=== PATIENT | female | born 1980 | race Caucasian/White ===

== ENCOUNTER 2021-09-09 12:50 | Inpatient (IN) | payer OTHER, SELFPAY ==
[~2021-09-09] VITALS: Ht 167.6 cm; Wt 61.7 kg
[2021-09-09 12:55] VITALS: BP 130/92
--- NOTE | 2021-09-09 12:55 | NUR ---
BIBA to bed 03.
--- NOTE | 2021-09-09 13:00 | NUR ---
Pt with 88% on room air c/o SOB; pt sat upright and placed on 4L by NC SpO2 99%.
--- NOTE | 2021-09-09 13:00 | NUR ---
41 y/o female BIBA c/o general body fatigue/weakness, upper abd pain x 3 days. Patient A&Ox4, ambulatory, states 8/10, sharp/constant, non-radiating pain. Pt presents with skin and eyes yellow, possible jaundice. Pt was picked up form grocery store after feeling like she was about to pass out. Pt also reports chills, nausea, vomiting, SOB, leg swelling. Denies dysuria, chest pain, headache, diarrhea. public works inspector in place. SpO2 92% on room air. Lung sounds diminished L lower lobes. Bed locked in lowest position, side rails x 1, call light in reach. pmh: gallstones, liver disease, hemophilia, cholelithiasis nka
--- NOTE | 2021-09-09 13:10 | NUR ---
Dr. Gutierrez is evaluating pt at bedside
--- NOTE | 2021-09-09 13:12 | NUR ---
RAD at bedside
[2021-09-09] MEDS ORDERED: ONDANSETRON 4 MG/2 ML VIAL IVP ONE (13:15)
[2021-09-09] MEDS ORDERED: MORPHINE SULFATE 4 MG/ML SYR IVP ONE (13:15)
--- NOTE | 2021-09-09 13:35 | NUR ---
labs collected from iv site 22g on right ac at this time, handed to hari elise
--- NOTE | 2021-09-09 13:40 | NUR ---
Ultrasound at bedside.
[2021-09-09 13:58] LABS: HEMATOCRIT 31.2 % (36-48); HEMOGLOBIN 11.2 g/dL (12.0-16.0); MEAN CORPUSCULAR HEMOGLOBIN 41 pg (27-31); MEAN CORPUSCULAR HGB CONC 36 g/dL (33-37); MEAN CORPUSCULAR VOLUME 115.8 fL (80-94); PLATELET COUNT (AUTO) 67 K/uL (140-450); RED CELL DISTRIBUTION WIDTH 18.3 % (11.6-13.7); WHITE BLOOD COUNT (AUTO) 3.9 K/uL (4.8-10.8)
--- NOTE | 2021-09-09 14:17 | NUR ---
ANDRES walked to lab and handed to CPT
[2021-09-09 14:20] LABS: PROTHROMBIN TIME 17.9 secs (10.8-13.4)
[2021-09-09] MEDS ORDERED: PRO5 PO (14:36)
[2021-09-09] MEDS ORDERED: PANT40EC PO (14:36)
[2021-09-09] MEDS ORDERED: LACT10SO86 PO (14:36)
[2021-09-09] MEDS ORDERED: RIFA550T PO (14:36)
[2021-09-09] MEDS ORDERED: FURO-570 PO (14:36)
[2021-09-09] MEDS ORDERED: SPIR50TA PO (14:36)
[2021-09-09 14:39] LABS: ALBUMIN 2.8 g/dL (3.4-5.0); ANION GAP 18.5 (8-16); CARBON DIOXIDE 24.7 mmol/L (21-32); CREATININE 0.6 mg/dL (0.6-1.3); POTASSIUM 3.2 mmol/L (3.5-5.1); TOTAL BILIRUBIN 20.2 mg/dL (0.0-1.0)
--- NOTE | 2021-09-09 14:49 | NUR ---
Pt reports pain 4/10 + relief. Denies nausea. All pt needs met.
--- NOTE | 2021-09-09 15:01 | NUR ---
Ice chips provided per pt request.
[2021-09-09 15:08] LABS: LYMPHOCYTES % (MANUAL) 7 % (20-46); MONOCYTES % (MANUAL) 9 % (5-12)
--- NOTE | 2021-09-09 15:12 | NUR ---
Pt states pain remains controlled; 0/10 at this time. Denies nausea. Call light in reach.
[2021-09-09] MEDS ORDERED: ALBUMIN HUMAN 25% 50 ML IV ONE (15:15)
--- NOTE | 2021-09-09 16:37 | NUR ---
Patient resting in semi-fowlers with personnel monitor in place. 4L by NC remains in place SpO2 98%. Bed locked in lowest position, side rails x 1.
[2021-09-09] MEDS ORDERED: NACL 0.9% 2,000 ML IV ONE (17:10)
[2021-09-09] MEDS ORDERED: PHYTONADIONE 10 MG in NACL 0.9% 50 ML IV ONE (17:10)
[2021-09-09] MEDS ORDERED: POTASSIUM CHLORIDE 10 MEQ TABER PO ONE ×3 (17:10→20:04)
--- NOTE | 2021-09-09 17:47 | NUR ---
Report given to TORIBIO Boogie.
--- NOTE | 2021-09-09 17:50 | NUR ---
Patient will be admitted to care of Dr. Palmer. Admited to Telemetry. Will go to room 110B. Belongings list completed. Report to TORIBIO Boogie.
--- NOTE | 2021-09-09 18:10 | NUR ---
RECEIVED PT FROM ER. PT A/O X4. RAC #20. O2 SATURATION @ 86-89% ON RA. 2L NC GIVEN TO PT. O2 SATURATION @ 98-100%. DINNER AT BEDSIDE. MRSA NASAL COMPLETED. WILL ENDORSE CONTINUITY OF CARE TO NIGHTSHIFT.
[2021-09-09 19:45] VITALS: BP 120/81
[2021-09-09] MEDS ORDERED: PHYTONADIONE 10 MG/ML AMP ONE (19:57)
[2021-09-09 20:00] VITALS: BP 121/69
[2021-09-09] MEDS: MORPHINE SULFATE 2 MG/ML SYR IVP PRN (20:30)
[2021-09-09] MEDS ORDERED: FUROSEMIDE 40 MG TAB PO ONE (21:35)
[2021-09-09 22:15] LABS: AMYLASE 51 U/L (25-115); LACTATE DEHYDROGENASE 357 U/L (81-234)
[2021-09-09] MEDS: LEVOFLOXACIN 500 MG/D5W PREMIX 100 ML IV SCH (22:30)
[2021-09-09] MEDS: LACTULOSE 20 GM/30 ML UDC PO SCH (22:31)
[2021-09-09] MEDS: RIFAXIMIN 550 MG TAB PO SCH (22:31)
[2021-09-09] MEDS: FUROSEMIDE 40 MG/4 ML VIAL IVP SCH (22:31)
[2021-09-09 22:44] LABS: BILIRUBIN,URINE 3+ (NEGATIVE); BLOOD, URINE 2+ (NEGATIVE); LEUKOCYTE ESTERASE ,URINE TRACE (NEGATIVE); NITRITE, URINE POSITIVE (NEGATIVE); UGLUCOSE TRACE (NEGATIVE)
[2021-09-09 23:14] LABS: APPEARANCE,URINE CLOUDY (CLEAR); COLOR,URINE AMBER (YELLOW)
[2021-09-09 23:19] LABS: RBC,URINE 0-5 /HPF (0-5)
[2021-09-10] VITALS: BP 118/58
--- NOTE | 2021-09-10 01:00 | NUR ---
BP RE CHECK 118/62 , C/O PAIN WILL MEDICATE - O2 SAT 98 %
[2021-09-10] MEDS: MORPHINE SULFATE 2 MG/ML SYR IVP PRN ×4 (01:09→16:51)
[2021-09-10] MEDS: ONDANSETRON 4 MG/2 ML VIAL IVP PRN ×3 (01:10→09:52)
[2021-09-10] MEDS: MIDODRINE 5 MG TAB PO SCH ×2 (01:10→13:57)
--- NOTE | 2021-09-10 02:00 | NUR ---
ROUNDS , SLEEPING . AROUSABLE EASILY BY NOISE , ON TELE MONITOR - SR .
[2021-09-10 04:00] VITALS: BP 117/62
--- NOTE | 2021-09-10 04:30 | NUR ---
BP RE CHECK , 121/82
--- NOTE | 2021-09-10 06:00 | NUR ---
ROUNDS , NO COMPLAIN MADE AT THIS TIME , CALL LIGHT WITHIN REACH .
[2021-09-10 06:47] LABS: BASOPHILS % (AUTO) 0.3 % (0.0-2.0); EOSINOPHILS % (AUTO) 0.1 % (0.0-4.0); HEMATOCRIT 22.7 % (36-48); HEMOGLOBIN 8.2 g/dL (12.0-16.0); LYMPHOCYTES # (AUTO) 0.3 K/uL (2.5-16.5); LYMPHOCYTES % (AUTO) 14.6 % (20.5-51.1); MEAN CORPUSCULAR HEMOGLOBIN 41 pg (27-31); MEAN CORPUSCULAR HGB CONC 36 g/dL (33-37); MEAN CORPUSCULAR VOLUME 114.1 fL (80-94); MONOCYTES # (AUTO) 0.3 K/uL (0.8-1.0); MONOCYTES % (AUTO) 13.9 % (1.7-9.3); NEUTROPHILS # (AUTO) 1.7 K/uL (1.8-7.7); NEUTROPHILS % (AUTO) 71.1 % (42.2-75.2); RED BLOOD CELL COUNT(AUTO) 1.99 MIL/uL (4.20-5.40); RED CELL DISTRIBUTION WIDTH 18.2 % (11.6-13.7); WHITE BLOOD COUNT (AUTO) 2.4 K/uL (4.8-10.8)
--- NOTE | 2021-09-10 07:00 | NUR ---
I INFORMED DR. TOTH THE PT HAS EPISODE OF DESAT - DR. TOTH MADE NEW ORDERS AND CARRIED OUT . I ENDORSED NURSE PHILILP TO FF UP ANY FURTHER ORDERS FROM DR. TOTH - NURSE PHILLIP VERBALIZES UNDERSTANDING .
[2021-09-10 07:03] LABS: ALBUMIN 2.2 g/dL (3.4-5.0); ANION GAP 12.1 (8-16); CARBON DIOXIDE 28.7 mmol/L (21-32); CREATININE 0.5 mg/dL (0.6-1.3); MAGNESIUM 1.2 mg/dL (1.8-2.4); PHOSPHORUS 3.7 mg/dL (2.5-4.9); TOTAL BILIRUBIN 15.7 mg/dL (0.0-1.0)
--- NOTE | 2021-09-10 07:23 | NUR ---
PATIENT HAS BEEN SCREENED AND CATEGORIZED HIGH NUTRITION RISK. PATIENT WILL BE SEEN WITHIN 1-2 DAYS OF ADMISSION. 09/10/21-09/11/[address]
[2021-09-10 07:33] LABS: PLATELET COUNT (AUTO) 31 K/uL (140-450)
--- NOTE | 2021-09-10 07:40 | NUR ---
RECEIVED REPORT FROM BOARD MIXER TENDER NURSE FOR CONTINUITY OF CARE. PT ASLEEP IN BED. ON O2 NC AT 4L, BREATHING SYMMETRICAL. FLACC O. ALL SAFETY MEASURES IN PLACE.
[2021-09-10 08:00] VITALS: BP 111/52
[2021-09-10 08:03] LABS: POTASSIUM 2.8 mmol/L (3.5-5.1)
--- NOTE | 2021-09-10 08:07 | NUR ---
REPORTED K LEVEL 2.[address] TOTH AND ALSO MAGNESIUM 1.2 WITH ORDER MADE, PT AWARE.
[2021-09-10] MEDS ORDERED: KCL 20 MEQ/WATER INJ PREMIX 200 ML IV ONE (08:10)
[2021-09-10] MEDS ORDERED: MAGNESIUM OXIDE 400 MG TAB PO SCH (08:16)
[2021-09-10] MEDS: FUROSEMIDE 40 MG/4 ML VIAL IVP SCH (09:00)
[2021-09-10] MEDS ORDERED: FUROSEMIDE 40 MG TAB PO SCH (09:00)
[2021-09-10] MEDS: SPIRONOLACTONE 50 MG TAB PO SCH (09:00)
[2021-09-10] MEDS: LACTULOSE 20 GM/30 ML UDC PO SCH ×3 (10:46→16:48)
[2021-09-10] MEDS: PANTOPRAZOLE 40 MG TABEC PO SCH (10:46)
[2021-09-10] MEDS: RIFAXIMIN 550 MG TAB PO SCH ×2 (10:47→20:46)
[2021-09-10] MEDS ORDERED: POTASSIUM CHLORIDE 20 MEQ, LIDOCAINE MPF 1% 25 MG in NACL 0.9% 250 ML IV ONE (10:50)
[2021-09-10] MEDS ORDERED: MAG SULF 2000 MG/WATER PREMIX 50 ML IV SCH (10:51)
[2021-09-10 12:00] VITALS: BP 116/62
--- NOTE | 2021-09-10 14:23 | NUR ---
PRN ZOFRAN GIVEN FOR NAUSEA/VOMITING.
--- NOTE | 2021-09-10 14:36 | NUR ---
PT REFUSES TO PUT LEFT UPPER SIDERAIL UP DESPITE EXPLAINING IMPORTANCE OF SIDERAIL FOR SAFETY. ONLY RIGHT UPPER SIDERAIL IS UP. Addendum: 09/10/21 at 1638 by Mari Kelly RN PT BEEN REFUSING LACTULOSE, OFFERED MULTIPLE TIMES.
--- NOTE | 2021-09-10 15:02 | NUR ---
PT STILL WITH EPISODES OF NAUSEA/VOMITING DESPITE PHARMACOLOGIC INTERVENTIONS ALSO DIDN'T EAT BREAKFAST AND LUNCH DUE TO VOMITING, DR TOTH MADE AWARE.
[2021-09-10 16:00] VITALS: BP 107/51
[2021-09-10] MEDS: METOCLOPRAMIDE 10 MG/2 ML INJ VIAL IVP PRN (16:42)
[2021-09-10 16:51] LABS: ANION GAP 11.6 (8-16); CARBON DIOXIDE 31.6 mmol/L (21-32); CREATININE 0.5 mg/dL (0.6-1.3); POTASSIUM 3.2 mmol/L (3.5-5.1)
--- NOTE | 2021-09-10 18:50 | NUR ---
CALLED BY PT DUE TO IV SITE LEAKING, NOTED IV SITE INFILTRATED. TRIED TO RE-INSERT NEW LINE TWICE BUT UNSUCCESSFUL, FLORAL ASSOCIATE NURSE MADE AWARE.
--- NOTE | 2021-09-10 19:25 | NUR ---
ENDORSED PT TO PROCESSING ANALYST NURSE. PT IN STABLE CONDITION
--- NOTE | 2021-09-10 19:30 | NUR ---
RECEIVED BEDSIDE REPORT FROM DAY SHIFT RN FOR CONTINUITY OF CARE. PT IS AWAKE ON NC 4L. PT IS NOT IN ANY DISTRESS. BREATHING RHYTHMIC AND UNLABORED. PT HAS NO IV. CALL LIGHT WITHIN REACH. ALL SAFETY MEASURES TAKEN. WILL CONTINUE TO MONITOR THE PT.
[2021-09-10 20:00] VITALS: BP 137/53
[2021-09-10] MEDS: LEVOFLOXACIN 500 MG/D5W PREMIX 100 ML IV SCH (20:48)
--- NOTE | 2021-09-10 20:55 | NUR ---
ALL DUE MEDS GIVEN. NO ADVERSE REACTION. WILL CONTINUE TO OBSERVE THE PT.
[2021-09-11] VITALS: BP 112/53
--- NOTE | 2021-09-11 00:30 | NUR ---
PT IS SLEEPING IN BED COMFORTABLY. PT IS NOT IN ANY DISTRESS. BREATHING RHYTHMIC AND UNLABORED. PT HAS NC 4L SATING 96%. IVF RUNNING PER MD ORDER. CALL LIGHT WITHIN REACH. ALL SAFETY MEASURES TAKEN. WILL CONTINUE TO MONITOR THE PT.
[2021-09-11] MEDS: MIDODRINE 5 MG TAB PO SCH ×2 (00:33→12:00)
--- NOTE | 2021-09-11 02:20 | NUR ---
PT IS SLEEPING IN BED COMFORTABLY. PT IS ON NC 4L SATING 96%. IVF RUNNING PER MD ORDER. NOT IN ANY DISTRESS. BREATHING RHYTHMIC AND UNLABORED. CALL LIGHT WITHIN REACH. ALL SAFETY MEASURES TAKEN. WILL CONTINUE TO MONITOR THE PT.
--- NOTE | 2021-09-11 03:48 | NUR ---
PT IS COMPLAINING OF RIGHT UPPER ABD PAIN 7/10. PT IS REQUESTING PAIN MEDICATION. WILL MEDICATE PER MD ORDER. COMFORT MEASURES PROVIDED. ALL SAFETY MEASURES TAKEN. WILL CONTINUE TO MONITOR THE PT.
[2021-09-11] MEDS: MORPHINE SULFATE 2 MG/ML SYR IVP PRN ×4 (03:51→21:08)
[2021-09-11 04:00] VITALS: BP 122/45
[2021-09-11 07:12] LABS: ANION GAP 9.7 (8-16); CARBON DIOXIDE 29.1 mmol/L (21-32); CREATININE 0.6 mg/dL (0.6-1.3)
--- NOTE | 2021-09-11 07:20 | NUR ---
ENDORSED PT TO DAY SHIFT RN FOR CONTINUITY OF CARE. PT IS STABLE.
[2021-09-11 07:23] LABS: POTASSIUM 2.8 mmol/L (3.5-5.1)
[2021-09-11 07:26] LABS: BASOPHILS % (AUTO) 0.1 % (0.0-2.0); HEMATOCRIT 20.9 % (36-48); HEMOGLOBIN 7.7 g/dL (12.0-16.0); LYMPHOCYTES # (AUTO) 0.4 K/uL (2.5-16.5); LYMPHOCYTES % (AUTO) 11.2 % (20.5-51.1); MEAN CORPUSCULAR HEMOGLOBIN 43 pg (27-31); MEAN CORPUSCULAR HGB CONC 37 g/dL (33-37); MEAN CORPUSCULAR VOLUME 115.2 fL (80-94); MONOCYTES # (AUTO) 0.4 K/uL (0.8-1.0); MONOCYTES % (AUTO) 13.8 % (1.7-9.3); NEUTROPHILS # (AUTO) 2.4 K/uL (1.8-7.7); NEUTROPHILS % (AUTO) 74.9 % (42.2-75.2); PLATELET COUNT (AUTO) 32 K/uL (140-450); RED BLOOD CELL COUNT(AUTO) 1.82 MIL/uL (4.20-5.40); RED CELL DISTRIBUTION WIDTH 17.2 % (11.6-13.7); WHITE BLOOD COUNT (AUTO) 3.2 K/uL (4.8-10.8)
[2021-09-11 07:27] LABS: MAGNESIUM 1.4 mg/dL (1.8-2.4); PHOSPHORUS 3.2 mg/dL (2.5-4.9)
--- NOTE | 2021-09-11 07:32 | NUR ---
RECEIVED REPORT FROM PM SHIFT FOR CONTINUITY OF CARE, PT APPEARS ASLEEP IN BED, NO ACUTE DISTRESS, SAFETY MEASRUES MAINTAINED, CALL LIGHT WITHIN REACH, WILL CONTINUE TO MONITOR
--- NOTE | 2021-09-11 07:33 | NUR ---
CRITICAL LAB - POTASSIUM 2.8, DR TOTH NOTIFIED
[2021-09-11 08:00] VITALS: BP 113/49
[2021-09-11] MEDS ORDERED: KCL 20 MEQ/WATER INJ PREMIX 200 ML IV SCH (08:15)
[2021-09-11] MEDS: FUROSEMIDE 40 MG/4 ML VIAL IVP SCH (08:49)
[2021-09-11] MEDS ORDERED: POTASSIUM CHLORIDE 10 MEQ TABER PO SCH (09:00)
[2021-09-11] MEDS: LACTULOSE 20 GM/30 ML UDC PO SCH ×3 (09:02→17:05)
[2021-09-11] MEDS: SPIRONOLACTONE 50 MG TAB PO SCH (09:03)
[2021-09-11] MEDS: MAGNESIUM OXIDE 400 MG TAB PO SCH (09:03)
[2021-09-11] MEDS: METOCLOPRAMIDE 10 MG/2 ML INJ VIAL IVP PRN ×2 (09:04→17:05)
[2021-09-11] MEDS: RIFAXIMIN 550 MG TAB PO SCH ×2 (09:04→20:13)
[2021-09-11] MEDS: PANTOPRAZOLE 40 MG TABEC PO SCH (09:04)
--- NOTE | 2021-09-11 10:54 | NUR ---
NELSON BENAVIDEZ: PATIENT HAS AN ORDER TO TRANSFER HER TO THE HIGHER LEVEL OF CARE. SPOKE WITH PATIENT STATED SHE IS ALREADY ON TRANSPLANT LIST WITH [facility] UNDER THE CARE OF DR SILAS WELSH LIVER SPECIALIST. PER PATIENT SINCE SHE HAS THE RECORD WITH [facility] IN [place] PREFERRED TO GO TO [facility] NOT OTHER HOSPITAL. FAXED TO [facility]. CM TO FOLLOW Addendum: 09/11/21 at 1433 by Sarah Ch RN DC PLANNING: CALLED [facility] SPOKE WITH BRANDEE Rodriguez HE PROVIDED THE AUTH # FOR [facility] [id number] REF # [id number] CALLED [facility] SPOKE WITH VALE STATED THE NURSE WILL REVIEW AND AWAITING FOR ACCEPTING DOCTOR. CM TO FOLLOW Addendum: 09/11/21 at 1634 by Sarah Ch RN DC PLANNING: RECEIVED A CALL FROM [facility] SPOKE WITH HERNANDO HARDIN AWAITING FOR OPERATIONS LEAD. PROVIDE THE UNIT NUMBER. ARRANGED TRANSPORT WITH BAUDILIO BARBOSA IT WILL CALL. CM TO FOLLOW Addendum: 09/18/21 at 1403 by Sarah Ch RN DC PLANNING Addendum: 09/19/21 at 1153 by Sarah Ch RN LATE ENTRY 09/18/21 1400 CM SPOKE WITH GAYE AT [facility], STATED SINCE PATIENT HAS PRIMARY INSURANCE WITH [facility] PPO AND SECONDARY MEDICARE A&B THROUGH HER EX AND HAS TO PAY THE DEDUCTIBLE $6000. IN ORDER TO USE THE MEDICARE A&B SHE HAS TO DIS ENROLL FROM [employer] . PATIENT VERBALIZED UNDERSTANDING AND CONFIRMED HAS THE PHONE NUMBER AND WILL CALL [facility]. DC PLAN TO TRANSFER TO SNF WITH HOSPICE. CM TO FOLLOW Addendum: 09/19/21 at 1203 by Sarah Ch RN DC PLANNING: SW AND BRANDEE SPOKE WITH PATIENT ALERT AND ORIENTED X 4 ABLE TO MAKE NEEDS KNOWN SITTING UP AT THE EDGE OF THE BED. DISCUSSED THE DC PLAN PER PATIENT [facility] REQUESTED A LEGAL PAPER FROM THE EX TO DIS ENROLL HER AND THE PROCESS WILL TAKE TIME . GAYE FROM HOSPICE SPOKE WITH PATIENT AND EXPLAIN THAT THE PROCESS WILL TAKE TIME, AT THE SAME TIME IF SHE IS ABLE TO STAY WITH FAMILY WILL FOLLOW UP WITH HER. PATIENT CALLED HER SISTER AND HER SISTER STATED WILLING TO PAY FOR THE HOTEL WILL ARRANGE UBER FOR TRANSPORT. PER PATIENT THE HOTEL CHECK-IN IS AT 3 PM AND WILL ARRANGE KNITTED GARMENT FINISHER TIME 2 PM . PER TORIBIO HEREDIA DC PAPER WORK IS READY TO BE SIGNED. CM TO FOLLOW
[2021-09-11 12:00] VITALS: BP 155/68
--- NOTE | 2021-09-11 13:42 | NUR ---
09/11/21 RD INITIAL ASSESSMENT COMPLETED PLEASE REFER TO NUTRITION ASSESSMENT UNDER CARE ACTIVITY FOR ESTIMATED NUTRITIONAL NEEDS. 1. CONTINUE REGULAR DIET TOLERATED 2. RECOMMEND ENSURE CLEAR TID PER PROTOCOL 3. RD TO FOLLOW-UP 2-3 DAYS, HIGH RISK DULCE GRANGER RD
[2021-09-11 16:00] VITALS: BP 119/42
--- NOTE | 2021-09-11 19:25 | NUR ---
RECEIVED BEDSIDE REPORT FROM DAY SHIFT RN FOR CONTINUITY OF CARE. PT IS ASLEE,ON NC 4L. PT IS NOT IN ANY DISTRESS. BREATHING EQUAL AND UNLABORED. PT IV ON L HAND G22, SL. CALL LIGHT WITHIN REACH. ALL SAFETY MEASURES IN PLACE. WILL CONTINUE TO MONITOR.
[2021-09-11] MEDS: LEVOFLOXACIN 500 MG/D5W PREMIX 100 ML IV SCH (19:54)
[2021-09-11 20:00] VITALS: BP 115/63
--- NOTE | 2021-09-11 20:30 | NUR ---
SCHEDULED MEDICATIONS GIVEN.PT TOLERATED WELL.CALL LIGHT WITHIN REACH. WILL CONTINUE TO MONITOR.
[2021-09-12] VITALS: BP 109/63
--- NOTE | 2021-09-12 00:40 | NUR ---
PT ASLEEP. VISIBLE CHEST RISE AND FALL NOTED.NO S/SX OF DISTRESS NOTED. ALL PRECAUTIONS IN PLACE. WILL CONTINUE TO MONITOR.
[2021-09-12] MEDS: MIDODRINE 5 MG TAB PO SCH ×2 (00:51→12:48)
[2021-09-12 04:00] VITALS: BP 117/52
[2021-09-12] MEDS: ONDANSETRON 4 MG/2 ML VIAL IVP PRN (05:12)
[2021-09-12] MEDS: MORPHINE SULFATE 2 MG/ML SYR IVP PRN (05:45)
--- NOTE | 2021-09-12 05:50 | NUR ---
PT COMPLAINED OF ABDOMINAL PAIN. PRN PAIN MEDICATION GIVEN. PT TOLERATED WELL. WILL CONTINUE TO MONITOR.
--- NOTE | 2021-09-12 06:25 | NUR ---
PT IS STABLE. NO ACUTE EVENTS THROUGHOUT THE NIGHT. NO S/SX OF DISTRESS NOTED. NO COMPLAINS AT THIS MOMENT. ALL NEEDS ATTENDED. ALL SAFETY PRECAUTIONS IN PLACE. WILL ENDORSE TO AM SHIFT NURSE.
--- NOTE | 2021-09-12 07:23 | NUR ---
PT IS STABLE. ENDORSED TO AM SHIFT NURSE FOR CONTINUITY OF CARE.
--- NOTE | 2021-09-12 07:44 | NUR ---
OFF SUPPLEMENTAL OXYGEN AT THIS TIME ROOM AIR SATURATION 85% PLACED PATIENT BACK ON SUPPLEMENTAL OXYGEN AT 3 LPM VIA NC
[2021-09-12 08:00] VITALS: BP 106/48
[2021-09-12] MEDS ORDERED: POTASSIUM CHLORIDE 10 MEQ TABER PO SCH (09:00)
[2021-09-12] MEDS ORDERED: MAGNESIUM OXIDE 400 MG TAB PO SCH (09:00)
[2021-09-12] MEDS: RIFAXIMIN 550 MG TAB PO SCH ×2 (09:47→20:42)
[2021-09-12] MEDS: LACTULOSE 20 GM/30 ML UDC PO SCH ×3 (09:47→17:00)
[2021-09-12] MEDS: FUROSEMIDE 40 MG/4 ML VIAL IVP SCH (09:47)
[2021-09-12] MEDS: MAGNESIUM OXIDE 400 MG TAB PO SCH (09:48)
[2021-09-12] MEDS: PANTOPRAZOLE 40 MG TABEC PO SCH (09:48)
[2021-09-12] MEDS: POTASSIUM CHLORIDE 10 MEQ TABER PO SCH (09:48)
[2021-09-12] MEDS: SPIRONOLACTONE 50 MG TAB PO SCH (09:48)
[2021-09-12] MEDS: METOCLOPRAMIDE 10 MG/2 ML INJ VIAL IVP PRN (09:49)
--- NOTE | 2021-09-12 10:49 | NUR ---
DC PLANNING: BRANDEE SPOKE WITH JOSELYN AT THE [facility] WHO STATES THAT THE METAL FITTERS AND MACHINISTS WHO REVIEWED THE CASE HAS DECLINED THE TRANSFER. HE STATES THAT THE PATIENT DOES NOT NEED A CHOLECYSTECTOMY BUT RECOMMENDS AN ERCP. BRANDEE SPOKE WITH THE ATTENDING MD WHO ASKS THAT BRANDEE CONTINUES TO LOOK FOR A FACILITY TO TRANSFER THE PATIENT TO, CM WILL SPEAK WITH [facility] TO GET AUTH FOR ANOTHER HOSPITAL. BRANDEE WILL FOLLOW. Addendum: 09/12/21 at 1159 by Christine Means CM DC PLANNING: BRANDEE SPOKE WITH LEEROY, COORDINATOR AT [facility] ([phone]) ENDORSED THAT [facility] DECLINED THE PATIENT ASKED FOR OTHER HLOC OPTIONS. GIVEN [facility], AUTH TO BE GENERATED ONCE THERE IS AN ACCEPTING HOSPITAL. BRANDEE SPOKE WITH DEMETRIO IN BED CONTROL AT [facility], NO BEDS. BRANDEE SPOKE WITH NAIMA AT [facility], CLINICAL PACKET FAXED FOR REVIEW BY THEIR METAL FITTERS AND MACHINISTS. BRANDEE WILL FOLLOW. Addendum: 09/12/21 at 1554 by Christine Means CM DC PLANNING: CM SPOKE WITH NAIMA AT [facility], PATIENT DECLINED BY THEIR METAL FITTERS AND MACHINISTS, FEELS SHE NEEDS A TERTIARY CENTER BECAUSE OF HER LOW PLATELET COUNT. CM WILL FOLLOW. Addendum: 09/13/21 at 1400 by aSrah Ch RN DC PLANNING: PATIENT HAS A DC ORDER TO GO HOME AND FOLLOW UP WITH LIVER SPECIALIST OUT PATIENT. RECEIVED A CALL FROM PT'S INSURANCE [facility] SPOKE WITH JACKIE IRVIN AT [phone], UPDATED PT CLINICAL AND FAXED MEDICATION LIST TO [phone] PER JACKIE APPROVED ALL DAYS REF # [id number] . CM TO FOLLOW Addendum: 09/14/21 at 1604 by Sarah Ch RN DC PLANNING: PATIENT REFUSED TO TAKE LACTULOSE AMMONIA LEVEL 137, CONDITION CHANGED CONFUSED AT TIMES. CALLED [facility] CM SPOKE WITH JACKIE NOTIFIED PT'S DISCHARGE CANCELLED PER JACKIE WILL OPEN THE CASE AND REVIEW THE CLINICALS FAXED ALL CLINICALS TO [phone]. CM TO FOLLOW Addendum: 09/15/21 at 0834 by Christine Means CM DC PLANNING: ORDER RECEIVED FOR DISCHARGE, BRANDEE SPOKE WITH SARAH CHARGE NURSE, PATIENTS MOTHER ANDREA WILL BE CALLED TO ASK TO PICK THE PATIENT UP. CM WILL FOLLOW. Addendum: 09/15/21 at 1125 by Christine Means CM DC PLANNING: PER NURSING, PATIENT IS ASKING TO BE TRANSFERRED TO [facility] ([facility] BRANDEE SPOKE WITH SERINA, COORDINATOR AT [facility] ([phone]), FACILITY IS CONTRACTED. BRANDEE SPOKE WITH ADMISSIONS AT SNF ([phone]), CLINICAL PACKET FAXED TO THEM. BRANDEE ALSO SPOKE WITH THE PATIENTS MOTHER IN LAW ANDREA BARNHART ([phone]), SHE STATES THAT THE PATIENT HAS BEEN LIVING IN [place] BUT CAME OUT ON BUSINESS WITH HER BOSS, UNCLEAR WHERE THE PATIENT WAS STAYING PRIOR TO HOSPITALIZATION. THE PATIENT'S ESTRANGED AND 19 YEAR OLD SON NU LIVE TOGETHER IN [place] AND THE PATIENT HAS BEEN SPEAKING WITH HER SON AT LEAST WEEKLY. THE PATIENT ALSO HAS A TWIN SISTER, JAYESH, LIVING IN [place] AND OTHER SISTERS LIVING IN [facility]. ANDREA WAS NOT ABLE TO GIVE MORE INFORMATION ABOUT THE PATIENT, BRANDEE WILL FOLLOW UP WITH FACILITY FOR PLACEMENT AND FOLLOW FOR NEEDS. Addendum: 09/15/21 at 1403 by Christine Means CM DC PLANNING: PATIENT DECLINED BY [facility] BECAUSE OF HER AGE (TOO YOUNG). CM LET THE PATIENTS MOTHER IN LAW ANDREA BARNHART KNOW. BRANDEE THEN SPOKE WITH THE PATIENT AT BEDSIDE TO LET HER KNOW THAT SHE WAS DECLINED AND THAT SNF PLACEMENT IS NOT PROBABLE BECAUSE OF HER AGE. THE PATIENT STATES THAT HER BOYFRIEND DELROY WILL PICK HER UP BUT HE'S WORKING AND CAN'T PICK HER UP UNTIL HE HAS A CHANCE. BRANDEE CONFIRMED HIS NUMBER IN THE PATIENTS PHONE WITH HER PERMISSION, PHONE NUMBER IS [phone]. BRANDEE ALSO OBTAINED HER SISTER JAYESH WONG PHONE NUMBER ([phone]) AND ASKED IF BRANDEE COULD CALL HER, PATIENT DOES NOT WANT HER SISTER CALLED. THE PATIENT STATES THAT DELROY IS ABLE TO TAKE CARE OF HER AND THAT THEY HAVE BEEN TOGETHER FOR 8 YEARS AND THAT HE HAS TAKEN CARE OF HER BEFORE. BRANDEE WILL FOLLOW. Addendum: 09/15/21 at 1643 by Christine Means CM DC PLANNING: BRANDEE ,MARIA R AND CHARGE NURSE MET WITH THE PATIENT AND CALLED HER FRIEND DELROY WITH CONVERSATION ON SPEAKER. DELROY STATES THAT HE IS NOT THE PATIENTS BOYFRIEND BUT IS A WORK FRIEND AND THAT HE'S KNOWN HER FOR A MONTH. STATES THAT THE PLAN WAS FOR HIM TO DRIVE HER TO [place] WHEN SHE DC'D FROM THE HOSPITAL AND THAT HE LIVES LOCALLY BUT WAS WILLING TO HELP. ADMITS THAT HE DOES NOT KNOW HOW TO HELP IF SHE IS CONFUSED AND UNABLE TO WALK. PATIENT UNABLE TO HOLD PHONE OR DRINK BY HERSELF, AND IS NOT EATING BY HERSELF. PERMISSION GIVEN BY THE PATIENT TO CALL HER SISTER JAYESH WONG ([phone]), BRANDEE UPDATED THE ATTENDING MD DR VITAL REGARDING LACK OF PLACEMENT AND SAFE ENVIRONMENT TO DC THE PATIENT TO. BRANDEE WILL FOLLOW.
[2021-09-12 12:00] VITALS: BP 111/59
[2021-09-12 12:10] LABS: BASOPHILS % (AUTO) 0.2 % (0.0-2.0); HEMATOCRIT 25.7 % (36-48); HEMOGLOBIN 9.3 g/dL (12.0-16.0); LYMPHOCYTES # (AUTO) 0.3 K/uL (2.5-16.5); LYMPHOCYTES % (AUTO) 7.5 % (20.5-51.1); MEAN CORPUSCULAR HEMOGLOBIN 42 pg (27-31); MEAN CORPUSCULAR HGB CONC 36 g/dL (33-37); MEAN CORPUSCULAR VOLUME 116.8 fL (80-94); MONOCYTES # (AUTO) 0.5 K/uL (0.8-1.0); MONOCYTES % (AUTO) 10.5 % (1.7-9.3); NEUTROPHILS # (AUTO) 3.5 K/uL (1.8-7.7); NEUTROPHILS % (AUTO) 81.8 % (42.2-75.2); PLATELET COUNT (AUTO) 41 K/uL (140-450); RED CELL DISTRIBUTION WIDTH 17.6 % (11.6-13.7); WHITE BLOOD COUNT (AUTO) 4.3 K/uL (4.8-10.8)
[2021-09-12 12:33] LABS: CARBON DIOXIDE 28.1 mmol/L (21-32); CREATININE 0.7 mg/dL (0.6-1.3); POTASSIUM 3.1 mmol/L (3.5-5.1)
[2021-09-12 12:37] LABS: MAGNESIUM 1.3 mg/dL (1.8-2.4); PHOSPHORUS 2.9 mg/dL (2.5-4.9)
[2021-09-12 16:00] VITALS: BP 106/41
--- NOTE | 2021-09-12 19:30 | NUR ---
RECEIVED BEDSIDE REPORT FROM DAY SHIFT RN FOR CONTINUITY OF CARE. PT IS AWAKE,ALERT AND ORIENTED. ON NC 4L. PT IS NOT IN ANY DISTRESS. BREATHING EQUAL AND UNLABORED. PT IV ON L HAND G22, SL. CALL LIGHT WITHIN REACH. ALL SAFETY MEASURES IN PLACE. WILL CONTINUE TO MONITOR.
--- NOTE | 2021-09-12 19:43 | NUR ---
PT PRESENTS AWAKE AND ALERT LAYING IN BED WITH NO SIGNS OF RESPIRATORY DISTRESS SATING 92% ON RA. AUSCULTATION REVEALED VESICULAR BS. WILL CONTINUE TO MONITOR.
[2021-09-12] MEDS: LEVOFLOXACIN 500 MG/D5W PREMIX 100 ML IV SCH (19:56)
[2021-09-12 20:00] VITALS: BP 100/49
--- NOTE | 2021-09-12 20:30 | NUR ---
SCHEDULED MEDICATIONS GIVEN. PT TOLERATED WELL. NO DISTRESS NOTED. WILL CONTINUE TO MONITOR.
--- NOTE | 2021-09-12 22:30 | NUR ---
PT ASLEEP. VISIBLE CHEST RISE AND FALL NOTED.NO S/SX OF DISTRESS NOTED. ALL PRECAUTIONS IN PLACE. WILL CONTINUE TO MONITOR.
--- NOTE | 2021-09-12 22:30 | NUR ---
PT PRESENTS LAYING IN BED NO SIGNS OF RESPIRATORY DISTRESS SEEN AT THIS TIME, EQUAL CHEST RISE, AUSCULTATIONS REVEALED VESICULAR BS, SATING 96% ON RA. WILL CONTINUE TO MONITOR.
[2021-09-13] VITALS (7 sets, daily range): BP systolic 95–118; BP diastolic 45–63
[2021-09-13] MEDS: MIDODRINE 5 MG TAB PO SCH ×2 (00:28→12:55)
--- NOTE | 2021-09-13 00:30 | NUR ---
SCHEDULED MEDICATION GIVEN. PT TOLERATED WELL. NO DISTRESS NOTED.
--- NOTE | 2021-09-13 02:46 | NUR ---
PT ASLEEP. VISIBLE CHEST RISE AND FALL NOTED.NO S/SX OF DISTRESS NOTED. ALL PRECAUTIONS IN PLACE. WILL CONTINUE TO MONITOR.
[2021-09-13] MEDS: ONDANSETRON 4 MG/2 ML VIAL IVP PRN (04:51)
--- NOTE | 2021-09-13 06:40 | NUR ---
PT IS STABLE. NO ACUTE EVENTS THROUGHOUT THE NIGHT. NO S/SX OF DISTRESS OF THE MOMENT. ALL NEEDS ATTENDED. ALL PRECAUTIONS IN PLACE. WILL ENDORSE TO AM SHIFT NURSE.
[2021-09-13 06:44] LABS: HEMATOCRIT 24.8 % (36-48); HEMOGLOBIN 9.1 g/dL (12.0-16.0); MEAN CORPUSCULAR HEMOGLOBIN 43 pg (27-31); MEAN CORPUSCULAR HGB CONC 37 g/dL (33-37); MEAN CORPUSCULAR VOLUME 116.7 fL (80-94); PLATELET COUNT (AUTO) 42 K/uL (140-450); RED BLOOD CELL COUNT(AUTO) 2.12 MIL/uL (4.20-5.40); WHITE BLOOD COUNT (AUTO) 3.9 K/uL (4.8-10.8)
[2021-09-13 07:00] LABS: ANION GAP 12.3 (8-16); CARBON DIOXIDE 26.7 mmol/L (21-32); CREATININE 0.8 mg/dL (0.6-1.3)
--- NOTE | 2021-09-13 07:25 | NUR ---
RECEIVED PATIENT FROM AUTOMATIC LINE SET UP MECHANIC NURSE FOR CONTINUITY OF CARE. PATIENT IS A/O X4. RESTING IN BED, AROUSABLE TO VOICE. RESPIRATORY EVEN AND UNLABORED, ON ROOM AIR. NO SIGN OF DISTRESS NOTED. SKIN WARM, DRY, NON DIAPHORETIC, JAUNDICE NOTED GENERALIZE. IV ON LEFT HAND 22G, INTACT AND PATENT, SALINE LOCK. PATIENT DENIES ANY PAIN OR DISCOMFORT. ABLE TO MAKE NEED KNOWN. PLAN OF CARE DISCUSSED, PATIENT VERBALIZED UNDERSTANDING. PRECAUTION IN PLACE. CALL LIGHT WITHIN REACH. WILL CONTINUE TO MONITOR.
[2021-09-13 08:20] LABS: LYMPHOCYTES % (MANUAL) 10 % (20-46); MONOCYTES % (MANUAL) 13 % (5-12)
[2021-09-13 08:21] LABS: BASOPHILS % (MANUAL) 0 % (0-2); EOSINOPHILS % (MANUAL) 0 % (0-4)
[2021-09-13 08:22] LABS: BLASTS, MANUAL % 0 % (0-0); METAMYELOCYTES % 0 % (0-0); MYELOCYTES % 0 % (0-0); OTHER CELLS,MANUAL % 0 (0-0); PROMYELOCYTES % 0 % (0-0)
[2021-09-13 08:23] LABS: BUFFY COAT SMEAR PREP 0
[2021-09-13] MEDS: LACTULOSE 20 GM/30 ML UDC PO SCH ×3 (09:00→17:00)
[2021-09-13] MEDS: FUROSEMIDE 40 MG/4 ML VIAL IVP SCH (09:04)
[2021-09-13] MEDS: SPIRONOLACTONE 50 MG TAB PO SCH (09:04)
[2021-09-13] MEDS: PANTOPRAZOLE 40 MG TABEC PO SCH (09:05)
[2021-09-13] MEDS: MAGNESIUM OXIDE 400 MG TAB PO SCH (09:05)
[2021-09-13] MEDS: RIFAXIMIN 550 MG TAB PO SCH ×2 (09:05→20:54)
[2021-09-13] MEDS: POTASSIUM CHLORIDE 10 MEQ TABER PO SCH (09:05)
--- NOTE | 2021-09-13 09:06 | NUR ---
SCHEDULE MEDICATIONS GIVEN WITH EDUCATION. PATIENT VERBALIZED UNDERSTANDING. PATIENT TOLERATED WELL. NO SIGN OF DISTRESS NOTED. PATIENT REFUSED LACTULOSE 20G PO. EDUCATION GIVEN, PATIENT STILL REFUSED.
[2021-09-13] MEDS ORDERED: LEVO750T51 PO (09:11)
[2021-09-13] MEDS ORDERED: POTA10TA70 PO (09:11)
[2021-09-13] MEDS ORDERED: FURO-570 PO (09:11)
[2021-09-13] MEDS ORDERED: LACT10SO86 PO (09:11)
--- NOTE | 2021-09-13 11:25 | NUR ---
PATIENT IS RESTING IN BED, NO SIGN OF DISTRESS NOTED. CALL LIGHT WITHIN REACH. WILL CONTINUE TO MONITOR.
--- NOTE | 2021-09-13 13:20 | NUR ---
PATIENT IS AWAKE, RESTING IN BED, NO SIGN OF DISTRESS NOTED. PRECAUTION IN PLACE. CALL LIGHT WITHIN REACH. WILL CONTINUE TO MONITOR.
--- NOTE | 2021-09-13 15:22 | NUR ---
CONFIRM WITH PATIENT THE MACHINE SCALLOP CUTTER TIME BY HER BOYFRIEND, IT WILL BE AROUND 6PM.
--- NOTE | 2021-09-13 16:30 | NUR ---
DISCHARGE EDUCATION GIVEN WITH HANDOUT. PATIENT VERBALIZED UNDERSTANDING. SW AND CM AT BEDSIDE TO EXPLAIN THE DISCHARGE THAT WAS PLACED, SO PATIENT WILL TAKE RESPONSIBILITY TO PAY FOR HOSPITAL COST. PATIENT VERBALIZED UNDERSTANDING AND STATES THAT HER BOYFRIEND WILL PICK HER UP AT 6PM.
--- NOTE | 2021-09-13 19:11 | NUR ---
ENDORSED PATIENT TO INSTRUCTOR KINDERGARTEN FOR CONTINUITY OF CARE. PATIENT IS STABLE.
--- NOTE | 2021-09-13 19:30 | NUR ---
RECEIVED BEDSIDE REPORT FROM DAY SHIFT RN FOR CONTINUITY OF CARE. PT IS AWAKE IN BED. NOT IN ANY DISTRESS. ON RA. 22 GAUGE LEFT HAND IV SALINE LOCK. TALKED TO PT ABOUT WHAT HER PLAN IS FOR BEING DISCHARGE. PT STATED HER MOM IS GOING TO PICK HER UP WITHIN AN HOUR. WILL FOLLOW UP. ALL SAFETY MEASURES TAKEN. WILL CONTINUE TO MONITOR THE PT.
[2021-09-13] MEDS: LEVOFLOXACIN 500 MG/D5W PREMIX 100 ML IV SCH (19:50)
--- NOTE | 2021-09-13 21:00 | NUR ---
ALL DUE MEDS GIVEN. NO ADVERSE REACTION NOTED. WILL CONTINUE TO MONITOR THE PT.
--- NOTE | 2021-09-13 21:30 | NUR ---
ENDORSED PT TO TORIBIO KINNEY FOR CONTINUITY OF CARE. PT IS STABLE.
--- NOTE | 2021-09-13 22:00 | NUR ---
RECEIVED REPORT FROM TORIBIO NEAL FOR CONTINUITY OF CARE. PT IS AWAKE,ALERT AND ORIENTED.ON ROOM AIR. BREATHING EQUAL AND UNLABORED. PT IV ON L HAND G22, SL. CALL LIGHT WITHIN REACH. ALL SAFETY MEASURES IN PLACE. WILL CONTINUE TO MONITOR.
[2021-09-14] VITALS: BP 127/68
[2021-09-14] MEDS: MIDODRINE 5 MG TAB PO SCH ×2 (00:38→13:00)
--- NOTE | 2021-09-14 00:45 | NUR ---
SCHEDULED MEDICATION GIVEN. PT TOLERATED WELL. NO DISTRESS NOTED.
[2021-09-14 04:00] VITALS: BP 117/65
[2021-09-14 06:07] LABS: FOLIC ACID 12.2 ng/mL (>3.0)
[2021-09-14 07:17] LABS: BASOPHILS % (AUTO) 0.1 % (0.0-2.0); HEMATOCRIT 28.7 % (36-48); HEMOGLOBIN 10.5 g/dL (12.0-16.0); LYMPHOCYTES # (AUTO) 0.2 K/uL (2.5-16.5); LYMPHOCYTES % (AUTO) 4.1 % (20.5-51.1); MEAN CORPUSCULAR HEMOGLOBIN 42 pg (27-31); MEAN CORPUSCULAR HGB CONC 36 g/dL (33-37); MEAN CORPUSCULAR VOLUME 116.3 fL (80-94); MONOCYTES # (AUTO) 0.6 K/uL (0.8-1.0); MONOCYTES % (AUTO) 10.7 % (1.7-9.3); NEUTROPHILS % (AUTO) 85.1 % (42.2-75.2); PLATELET COUNT (AUTO) 43 K/uL (140-450); RED BLOOD CELL COUNT(AUTO) 2.47 MIL/uL (4.20-5.40); RED CELL DISTRIBUTION WIDTH 18.4 % (11.6-13.7); WHITE BLOOD COUNT (AUTO) 5.8 K/uL (4.8-10.8)
--- NOTE | 2021-09-14 07:36 | NUR ---
ENDORSED TO AM SHIFT NURSE FOR CONTINUITY OF CARE. PT IS STABLE.
[2021-09-14 07:38] LABS: ANION GAP 15.8 (8-16); CARBON DIOXIDE 26.2 mmol/L (21-32); CREATININE 0.7 mg/dL (0.6-1.3)
[2021-09-14 08:00] VITALS: BP 112/44
--- NOTE | 2021-09-14 08:30 | NUR ---
PATIENT IS AOX1, CONFUSED, DIFFICULT TO ORIENT, UNABLE TO FOLLOW COMMANDS. SHE DOES NOT TRACK MOVEMENTS, RESPIRATIONS EVEN AND UNLABORED ON ROOM AIR. DENIES PAIN AT THIS TIME. SKIN IS JAUNDICED/ EYES ICTERIC. NO SWELLING. PATIENT IS REFUSING MEDICATIONS, UNABLE TO ORIENT AND HAVE PATIENT COMPLY. NOTIFIED DR STEWART THAT PATIENT IS NOT STABLE TO GO HOME. AMMONIA LEVEL ORDERED. WILL CONTINUE TO MONITOR.
[2021-09-14] MEDS: KCL 20 MEQ/WATER INJ PREMIX 200 ML IV PRN ×2 (08:39→16:27)
[2021-09-14] MEDS: FUROSEMIDE 40 MG/4 ML VIAL IVP SCH (09:00)
[2021-09-14] MEDS: SPIRONOLACTONE 50 MG TAB PO SCH (09:00)
[2021-09-14] MEDS: POTASSIUM CHLORIDE 10 MEQ TABER PO SCH (09:00)
[2021-09-14] MEDS: LACTULOSE 20 GM/30 ML UDC PO SCH ×3 (09:00→17:08)
[2021-09-14] MEDS: PANTOPRAZOLE 40 MG TABEC PO SCH (09:00)
[2021-09-14] MEDS: MAGNESIUM OXIDE 400 MG TAB PO SCH (09:00)
--- NOTE | 2021-09-14 10:00 | NUR ---
UPDATED MOTHER, ANDREA, ON PLAN OF CARE. SHE IS AWARE THAT PATIENT WILL STAY ANOTHER DAY.
[2021-09-14 12:00] VITALS: BP 105/41
[2021-09-14 16:00] VITALS: BP 111/49
[2021-09-14] MEDS: DEXT 5% /NACL 0.9% 1,000 ML IV SCH (16:04)
--- NOTE | 2021-09-14 16:22 | NUR ---
09/14/21 RD FOLLOW UP COMPLETED PLEASE REFER TO NUTRITION ASSESSMENT UNDER CARE ACTIVITY FOR ESTIMATED NUTRITIONAL NEEDS. 1. CONTINUE REGULAR DIET TOLERATED 2. DISCONTINUE ORAL SUPPLEMENTS D/T PT REFUSING 3. RD TO FOLLOW-UP 2-3 DAYS, HIGH RISK DULCE GRANGER RD
--- NOTE | 2021-09-14 17:00 | NUR ---
PATIENT STILL REFUSING PO MEDICATIONS. NOT ABLE TO REORIENT. NOT FOLLOWING COMMANDS, STILL ANXIOUS AND TRYING TO GET OUT OF BED. GAVE LACTULOSE VIA ENEMA, PATIENT TOLERATED WELL.
--- NOTE | 2021-09-14 19:14 | NUR ---
RECEIVED REPORT FROM MORNING NURSE. PATIENT RESTING AT BEDSIDE, SEEMS RESTLESS, TRYING TO GET OUT OF BED. ALERT AND ORIENTED TO SELF AND , CONFUSED. SAFETY MEASURES DONE, SIDE ARAILS UP X2 WITH BED ALARM ON. IVF ONGOING AT DESIRED RATE. WILL CONTINUE TO MONITOR PATIENT.
[2021-09-14 20:00] VITALS: BP 126/54
[2021-09-14] MEDS: RIFAXIMIN 550 MG TAB PO SCH (20:29)
--- NOTE | 2021-09-14 21:17 | NUR ---
PATIENT GIVEN DUE MED. PATIENT TOOK MED BUT SPIT IT OUT AFTER NOT ABLE TO SWALLOW. WILL CONTINUE TO MONITOR PATIENT.
[2021-09-15] MEDS: MIDODRINE 5 MG TAB PO SCH ×2 (01:15→13:00)
[2021-09-15] MEDS: DEXT 5% /NACL 0.9% 1,000 ML IV SCH ×2 (01:35→15:29)
[2021-09-15 04:00] VITALS: BP 111/44
[2021-09-15 07:00] LABS: EOSINOPHILS % (AUTO) 0.1 % (0.0-4.0); HEMATOCRIT 26.1 % (36-48); HEMOGLOBIN 9.4 g/dL (12.0-16.0); LYMPHOCYTES # (AUTO) 0.4 K/uL (2.5-16.5); LYMPHOCYTES % (AUTO) 8.2 % (20.5-51.1); MEAN CORPUSCULAR HEMOGLOBIN 42 pg (27-31); MEAN CORPUSCULAR HGB CONC 36 g/dL (33-37); MEAN CORPUSCULAR VOLUME 117.9 fL (80-94); MONOCYTES # (AUTO) 0.7 K/uL (0.8-1.0); MONOCYTES % (AUTO) 13.5 % (1.7-9.3); NEUTROPHILS # (AUTO) 4.1 K/uL (1.8-7.7); NEUTROPHILS % (AUTO) 78.2 % (42.2-75.2); PLATELET COUNT (AUTO) 41 K/uL (140-450); RED BLOOD CELL COUNT(AUTO) 2.21 MIL/uL (4.20-5.40); RED CELL DISTRIBUTION WIDTH 18.9 % (11.6-13.7); WHITE BLOOD COUNT (AUTO) 5.2 K/uL (4.8-10.8)
[2021-09-15 07:25] LABS: ANION GAP 13.9 (8-16); CARBON DIOXIDE 22.3 mmol/L (21-32); CREATININE 0.7 mg/dL (0.6-1.3); POTASSIUM 3.2 mmol/L (3.5-5.1)
--- NOTE | 2021-09-15 07:35 | NUR ---
PT IS AWAKEAOX2 AND CONFUSED.ON ROOM AIR. BREATHING IS EQUAL AND UNLABORED. NO SIGNS OF DISTRESS. PT IV ON L HAND G22. CALL LIGHT WITHIN REACH. ALL SAFETY MEASURES IN PLACE. PT IS STABLE.
[2021-09-15 08:00] VITALS: BP 106/59
[2021-09-15] MEDS: SPIRONOLACTONE 50 MG TAB PO SCH (09:00)
[2021-09-15] MEDS: POTASSIUM CHLORIDE 10 MEQ TABER PO SCH (10:34)
[2021-09-15] MEDS: RIFAXIMIN 550 MG TAB PO SCH ×2 (10:34→20:35)
[2021-09-15] MEDS: PANTOPRAZOLE 40 MG TABEC PO SCH (10:35)
[2021-09-15] MEDS: MAGNESIUM OXIDE 400 MG TAB PO SCH (10:35)
[2021-09-15] MEDS: FUROSEMIDE 40 MG/4 ML VIAL IVP SCH (10:35)
[2021-09-15] MEDS: LACTULOSE 20 GM/30 ML UDC PO SCH ×3 (10:36→16:41)
[2021-09-15 16:00] VITALS: BP 113/66
--- NOTE | 2021-09-15 16:00 | NUR ---
PT SISTER WAS TALKING TO PT AND PT TLD HER WHERE SHE WAS AND WHY SHE WAS HERE. SISTER JAYESH WILL FOLLOW UP TOMORROW FOR POSSIBLE DISCHARGE AND AFTER INPATIENT PLANS.
--- NOTE | 2021-09-15 19:26 | NUR ---
ENDORSED TO DECORATING MACHINE OPERATOR NURSE FOR CONTINUITY OF CARE. POC DISCUSSED.
--- NOTE | 2021-09-15 19:27 | NUR ---
RECEIVED PATIENT WAKE ON BED, HAVING DINNER. BREATHING EVEN AND UNLABORED. IV FLUIDS ONGOING AT DESIRED RATE. NO PAIN COMPLAINTS. WILL CONTINUE TO MONITOR PATIENT.
[2021-09-15 20:00] VITALS: BP 115/49
[2021-09-15] MEDS: KCL 20 MEQ/WATER INJ PREMIX 200 ML IV PRN (22:32)
[2021-09-16] MEDS: MIDODRINE 5 MG TAB PO SCH ×2 (00:41→13:22)
[2021-09-16] MEDS: MORPHINE SULFATE 2 MG/ML SYR IVP PRN (00:45)
[2021-09-16 04:00] VITALS: BP 90/51
[2021-09-16] MEDS: DEXT 5% /NACL 0.9% 1,000 ML IV SCH ×2 (05:50→16:25)
[2021-09-16 07:09] LABS: BASOPHILS % (AUTO) 0.2 % (0.0-2.0); HEMATOCRIT 27.4 % (36-48); HEMOGLOBIN 9.9 g/dL (12.0-16.0); LYMPHOCYTES # (AUTO) 0.6 K/uL (2.5-16.5); LYMPHOCYTES % (AUTO) 13.8 % (20.5-51.1); MEAN CORPUSCULAR HEMOGLOBIN 43 pg (27-31); MEAN CORPUSCULAR HGB CONC 36 g/dL (33-37); MEAN CORPUSCULAR VOLUME 119.8 fL (80-94); MONOCYTES # (AUTO) 0.6 K/uL (0.8-1.0); MONOCYTES % (AUTO) 14.7 % (1.7-9.3); NEUTROPHILS # (AUTO) 2.9 K/uL (1.8-7.7); NEUTROPHILS % (AUTO) 71.3 % (42.2-75.2); PLATELET COUNT (AUTO) 44 K/uL (140-450); RED BLOOD CELL COUNT(AUTO) 2.29 MIL/uL (4.20-5.40); RED CELL DISTRIBUTION WIDTH 17.7 % (11.6-13.7); WHITE BLOOD COUNT (AUTO) 4.1 K/uL (4.8-10.8)
[2021-09-16 08:00] VITALS: BP 106/56
--- NOTE | 2021-09-16 08:02 | NUR ---
RECEIVED PATIENT, AOX2-3, LETHARGIC, REORIENTABLE. RESPIRATIONS EVEN AND UNLABORED ON ROOM AIR, VITAL SIGNS STABLE. JAUNDICED/ICTERIC, OTHERWISE SKIN INTACT. POOR PO INTAKE, ENCOURAGED ORAL SUPPLEMENT. IV TO LEFT FOREARM INFILTRATED.
[2021-09-16 08:20] LABS: ANION GAP 13.6 (8-16); CARBON DIOXIDE 23.5 mmol/L (21-32); CREATININE 0.7 mg/dL (0.6-1.3); POTASSIUM 3.1 mmol/L (3.5-5.1)
[2021-09-16] MEDS: FUROSEMIDE 40 MG/4 ML VIAL IVP SCH ×2 (09:00→09:09)
[2021-09-16] MEDS: SPIRONOLACTONE 50 MG TAB PO SCH (09:00)
--- NOTE | 2021-09-16 09:00 | NUR ---
SPOKE TO MOTHER, ANDREA, AND PROVIDED HER WITH AN UPDATE. BIOLOGY INTERN CALLED, UPDATE GIVEN.
[2021-09-16] MEDS: guaiFENesin 20 MG/ML UDC PO PRN ×3 (09:04→22:27)
[2021-09-16] MEDS: LACTULOSE 20 GM/30 ML UDC PO SCH ×3 (09:04→16:24)
[2021-09-16] MEDS: MAGNESIUM OXIDE 400 MG TAB PO SCH (09:04)
[2021-09-16] MEDS: RIFAXIMIN 550 MG TAB PO SCH ×2 (09:04→20:28)
[2021-09-16] MEDS: PANTOPRAZOLE 40 MG TABEC PO SCH (09:05)
[2021-09-16] MEDS: POTASSIUM CHLORIDE 10 MEQ TABER PO SCH (09:05)
[2021-09-16] MEDS: KCL 20 MEQ/WATER INJ PREMIX 200 ML IV PRN (09:14)
--- NOTE | 2021-09-16 09:19 | NUR ---
(09/16/21) RD FOLLOW UP COMPLETED PLEASE REFER TO NUTRITION PROGRESS NOTE UNDER CARE ACTIVITY FOR ESTIMATED NUTRITION NEEDS. RD RECOMMENDATIONS: 1. CONTINUE REGULAR DIET TOLERATED 2. ORAL SUPPLEMENTS PREVIOUSLY D/CD D/T PT REFUSING 3. RD TO FOLLOW-UP 2-3 DAYS, HIGH RISK NANCY [place] MS, RDN
--- NOTE | 2021-09-16 10:00 | NUR ---
UNABLE TO OBTAIN IV ACCESS, DR VITAL MADE AWARE.
--- NOTE | 2021-09-16 13:44 | NUR ---
PATIENT SITTING IN BED HAVING DINNER, HAD LARGE BM.
[2021-09-16 16:00] VITALS: BP 103/51
--- NOTE | 2021-09-16 18:45 | NUR ---
PATIENT WITH POOR APPETITE BUT TAKING ENSURE. RESTING IN BED. NO COMPLAINTS AT THIS TIME. WILL ENDORSE TO NIGHT RN.
--- NOTE | 2021-09-16 19:10 | NUR ---
RECEIVED REPORT FROM MORNING SHIFT RN. PATIENT ASLEEP ON BED, RESPIRATION EVEN AND UNLABORED. NO IV ACCESS, MD AWARE. AWAITING HOSPICE EVALUATION. WILL CONTINUE TO MONITOR PATIENT.
[2021-09-16 20:00] VITALS: BP 122/59
[2021-09-17] MEDS: MIDODRINE 5 MG TAB PO SCH ×2 (01:30→12:26)
[2021-09-17 04:00] VITALS: BP 108/46
[2021-09-17] MEDS: DEXT 5% /NACL 0.9% 1,000 ML IV SCH ×2 (06:45→20:05)
--- NOTE | 2021-09-17 06:59 | NUR ---
UNSUCCESSFUL 1 TIME ATTEMPT TO INSERT IV. PATIENT WANTED US GUIDED IV INSERTION INSTEAD. WILL ENDORSE TO MORNING NURSE.
[2021-09-17 07:12] LABS: HEMATOCRIT 23.6 % (36-48); HEMOGLOBIN 8.6 g/dL (12.0-16.0); MEAN CORPUSCULAR HEMOGLOBIN 43 pg (27-31); MEAN CORPUSCULAR HGB CONC 36 g/dL (33-37); MEAN CORPUSCULAR VOLUME 118.8 fL (80-94); PLATELET COUNT (AUTO) 37 K/uL (140-450); RED BLOOD CELL COUNT(AUTO) 1.99 MIL/uL (4.20-5.40); RED CELL DISTRIBUTION WIDTH 17.2 % (11.6-13.7); WHITE BLOOD COUNT (AUTO) 3.5 K/uL (4.8-10.8)
[2021-09-17 07:22] LABS: CARBON DIOXIDE 21.3 mmol/L (21-32); CREATININE 0.5 mg/dL (0.6-1.3); POTASSIUM 3.3 mmol/L (3.5-5.1)
[2021-09-17 07:33] LABS: LYMPHOCYTES % (MANUAL) 10 % (20-46); MONOCYTES % (MANUAL) 8 % (5-12)
[2021-09-17] MEDS ORDERED: POTASSIUM CHLORIDE 10 MEQ TABER PO PRN (08:15)
[2021-09-17] MEDS ORDERED: MAG SULF 2000 MG/WATER PREMIX 50 ML IV PRN (08:15)
[2021-09-17] MEDS: FUROSEMIDE 40 MG/4 ML VIAL IVP SCH (08:40)
[2021-09-17] MEDS: MAGNESIUM OXIDE 400 MG TAB PO SCH (08:41)
[2021-09-17] MEDS: RIFAXIMIN 550 MG TAB PO SCH ×2 (08:41→20:34)
[2021-09-17] MEDS: LACTULOSE 20 GM/30 ML UDC PO SCH ×3 (08:41→16:46)
[2021-09-17] MEDS: POTASSIUM CHLORIDE 10 MEQ TABER PO SCH (08:41)
[2021-09-17] MEDS: SPIRONOLACTONE 50 MG TAB PO SCH (08:41)
[2021-09-17] MEDS: PANTOPRAZOLE 40 MG TABEC PO SCH (08:47)
--- NOTE | 2021-09-17 10:03 | NUR ---
PT IS AOX4, VSS, NAD NOTED. PT SEEN BY THIS AM. PLAN FOR HOME WITH HOSPICE WHEN PT KNOWS WHERE SHE CAN GO. PT INFORMED MD SHE WANTS TO REMAIN FULL CODE STATUS WHILE IN HOSPITAL. MD AWARE PT HAS NO IV ACCESS AND ORDER PLACED FOR MIDLINE. CONSENT SIGNED BY PT AND MD.
[2021-09-17] MEDS: guaiFENesin 20 MG/ML UDC PO PRN (10:44)
[2021-09-17 12:00] VITALS: BP 112/52
[2021-09-17] MEDS: traMADol 50 MG TAB PO PRN ×2 (13:30→20:44)
--- NOTE | 2021-09-17 19:22 | NUR ---
RECEIVED REPORT FROM AM NURSE. DISCUSSED AND REVIEWED POC FOR CONTINUITY OF CARE. PT REFUSED TO HAVE IVF RUNNING. STATED SHE WAS DRINKING ENOUGH. VSS LOW BP 100% O2 SAT ON ROOM AIR. WILL CONTINUE TO OBSERVE.
--- NOTE | 2021-09-17 19:22 | NUR ---
PT IN STABLE CONDITION, ENDORSED CARE TO LEAD CARPENTER RN.
[2021-09-17 20:00] VITALS: BP 98/48
--- NOTE | 2021-09-17 21:00 | NUR ---
HS MEDS GIVEN ORDERED. PT STILL REFUSING IVF. EATING ALL THE TIME LITTLE AMTS. C/O 01/21 PAIN WHERE GALLBLADDER IS. MEDICATED WITH ULTRAM 1 TAB PO. CONTINUE TO MONITOR.
--- NOTE | 2021-09-17 21:45 | NUR ---
REASSESSED PT . ULTRAM EFFECTIVE. PT DROWSY STATES PAIN IS NOW A 4/.
--- NOTE | 2021-09-17 22:00 | NUR ---
PT IN A COUGHING FIT. ROBITUSSIN 100MG /5ML GIVEN WITH RESULTS AFTER 15 MINUTES.
[2021-09-18] MEDS: MIDODRINE 5 MG TAB PO SCH ×2 (00:42→13:51)
[2021-09-18 04:00] VITALS: BP 91/35
--- NOTE | 2021-09-18 06:30 | NUR ---
PT UP AT SINK BRUSHING TEETH. RR EVEN BUT SHALLOW. REMAINS ICTERIC ,JAUNDICED. STILL DOESN'T SEE THE NEED FOR IVF. AMBULATES INDEPENDENTLY. HAS FREQUENT COUGHING JAG. MEDICATED WITH ROBITUSSIN 100MG/5ML. ENDORSE TO DAY SHIFT TO CONTINUE TO OBSERVE.
[2021-09-18 06:38] LABS: BASOPHILS % (AUTO) 0.4 % (0.0-2.0); HEMATOCRIT 22.8 % (36-48); HEMOGLOBIN 8.3 g/dL (12.0-16.0); LYMPHOCYTES # (AUTO) 0.6 K/uL (2.5-16.5); LYMPHOCYTES % (AUTO) 14.5 % (20.5-51.1); MEAN CORPUSCULAR HEMOGLOBIN 44 pg (27-31); MEAN CORPUSCULAR HGB CONC 36 g/dL (33-37); MEAN CORPUSCULAR VOLUME 119.9 fL (80-94); MONOCYTES % (AUTO) 24.2 % (1.7-9.3); NEUTROPHILS # (AUTO) 2.4 K/uL (1.8-7.7); NEUTROPHILS % (AUTO) 60.9 % (42.2-75.2); PLATELET COUNT (AUTO) 41 K/uL (140-450); RED CELL DISTRIBUTION WIDTH 17.3 % (11.6-13.7); WHITE BLOOD COUNT (AUTO) 3.9 K/uL (4.8-10.8)
[2021-09-18 06:44] LABS: ANION GAP 11.3 (8-16); CARBON DIOXIDE 24.2 mmol/L (21-32); CREATININE 0.7 mg/dL (0.6-1.3); POTASSIUM 3.5 mmol/L (3.5-5.1)
[2021-09-18] MEDS: guaiFENesin 20 MG/ML UDC PO PRN (06:50)
--- NOTE | 2021-09-18 07:28 | NUR ---
RECEIVED REPORT FROM CORDUROY CUTTING SUPERVISOR NURSE FOR CONTINUITY OF CARE. PT IS UP AND WALKING AROUND ROOM. RESPIRATIONS ARE EVEN AND UNLABORED ON ROOM AIR. NO SIGNS OF DISTRESS NOTED. NO COMPLAINTS OF PAIN OR DISCOMFORT NOTED. PT ABD IS NONTENDER, NONDISTENDED WITH BOWEL SOUNDS PRESENT. PT STATES LAST BOWEL MOVEMENT WAS THIS MORNING. PT ON REGULAR DIET. PT SKIN IS WARM, DRY, AND INTACT. SKIN IS JAUNDICED. PT HAS KAILYN MIDLINE IN PLACE. INTACT AND PATENT. CALL LIGHT WITHIN REACH. ALL SAFETY MEASURES IN PLACE. WILL CONTINUE TO MONITOR.
[2021-09-18 08:00] VITALS: BP 115/65
[2021-09-18] MEDS: MAGNESIUM OXIDE 400 MG TAB PO SCH (08:55)
[2021-09-18] MEDS: POTASSIUM CHLORIDE 10 MEQ TABER PO SCH (08:55)
[2021-09-18] MEDS: SPIRONOLACTONE 50 MG TAB PO SCH (08:56)
[2021-09-18] MEDS: PANTOPRAZOLE 40 MG TABEC PO SCH (08:56)
[2021-09-18] MEDS: LACTULOSE 20 GM/30 ML UDC PO SCH ×3 (08:56→16:45)
[2021-09-18] MEDS: RIFAXIMIN 550 MG TAB PO SCH ×2 (08:57→21:48)
--- NOTE | 2021-09-18 08:57 | NUR ---
ADMINISTERED ALL SCHEDULED MEDICATIONS. EDUCATED PT REGARDING MEDS ADMINISTERED. ANSWERED ALL QUESTIONS. WILL CONTINUE TO MONITOR.
[2021-09-18] MEDS: FUROSEMIDE 40 MG/4 ML VIAL IVP SCH (09:11)
[2021-09-18] MEDS: DEXT 5% /NACL 0.9% 1,000 ML IV SCH ×2 (09:48→22:45)
--- NOTE | 2021-09-18 10:02 | NUR ---
PT WAS MOVED FROM ROOM 110 TO ROOM 119. PT TOLERATED WELL. WILL CONTINUE TO MONITOR.
--- NOTE | 2021-09-18 14:45 | NUR ---
DID ROUNDS ON PT. PT IN ROOM ON HER PHONE. NO SIGNS OF PAIN OR DISCOMFORT NOTED. WILL CONTINUE TO MONITOR.
[2021-09-18 16:00] VITALS: BP 113/54
--- NOTE | 2021-09-18 17:18 | NUR ---
DID ROUNDS ON PT. PT IN HER ROOM ON THE PHONE. STATES SHE IS "OK JUST BEEN BUSY GETTING SOME THINGS IN ORDER AND TAKEN CARE OF". PT DENIES ANY PAIN OR DISCOMFORT. NO SIGNS OF SOB OR DISTRESS. WILL CONTINUE TO MONITOR.
--- NOTE | 2021-09-18 19:21 | NUR ---
ENDORSED PT TO BIOLOGY DEPARTMENT CHAIR NURSE FOR CONTINUITY OF CARE. ALL NEEDS MET THROUGHOUT SHIFT. RESPIRATIONS ARE EVEN AND UNLABORED. NO SIGNS OF DISTRESS NOTED. PT IS STABLE.
--- NOTE | 2021-09-18 19:22 | NUR ---
RECEIVED ENDORSEMENT FROM ADITI ACKERMAN FOR CONTINUITY OF CARE. PATIENT IS STABLE.
[2021-09-18 20:00] VITALS: BP 115/57
--- NOTE | 2021-09-18 20:00 | NUR ---
Patient's Plan of Care was discussed and reviewed with TYRON TREVIZO
--- NOTE | 2021-09-18 20:05 | NUR ---
PATIENT IS STABLE AND AWAKE. A&OX4. VERBALLY RESPONSIVE AND ABLE TO COMMUNICATE NEEDS. ON ROOM AIR WITH NO APPARENT S/SX OF ACUTE DISTRESS. RESPIRATIONS EVEN AND UNLABORED. DENIES PAIN. PATIENT IS CONTINENT AND AMBULATORY. PATIENT HAS A KAILYN MIDLINE PATENT/INTACT. SKIN IS INTACT. POC AND WHITE COMMUNICATION BOARD UPDATED. ALL SAFETY MEASURES IN PLACE. CALL LIGHT WITHIN REACH. WILL CONTINUE TO MONITOR.
--- NOTE | 2021-09-18 21:05 | NUR ---
ADMINISTERED SCHEDULED MEDICATION PER MD ORDER. TOLERATED WELL. NADR. DENIES PAIN. RESPIRATIONS EVEN AND UNLABORED WITH NO APPARENT S/SX OF ACUTE DISTRESS. SNACKS PROVIDED. WHITE COMMUNICATION BOARD UPDATED. ALL SAFETY MEASURES IN PLACE. CALL LIGHT WITHIN REACH. WILL CONTINUE TO MONITOR.
--- NOTE | 2021-09-18 23:05 | NUR ---
PATIENT IS STABLE AND ASLEEP. CHEST IS RISING AND FALLING EVENLY. RESPIRATIONS EVEN AND UNLABORED WITH NO APPARENT S/SX OF ACUTE DISTRESS. WHITE COMMUNICATION BOARD UPDATED. ALL SAFETY MEASURES IN PLACE. CALL LIGHT WITHIN REACH. WILL CONTINUE TO MONITOR.
[2021-09-19] MEDS: MIDODRINE 5 MG TAB PO SCH (00:28)
--- NOTE | 2021-09-19 01:05 | NUR ---
ADMINISTERED SCHEDULED MEDICATION PER MD ORDER. TOLERATED WELL. NADR. DENIES PAIN. RESPIRATIONS EVEN AND UNLABORED WITH NO APPARENT S/SX OF ACUTE DISTRESS. WHITE COMMUNICATION BOARD UPDATED. ALL SAFETY MEASURES IN PLACE. CALL LIGHT WITHIN REACH. WILL CONTINUE TO MONITOR.
--- NOTE | 2021-09-19 03:05 | NUR ---
CHECKED PATIENT. STABLE AND ASLEEP. CHEST IS RISING AND FALLING EVENLY. RESPIRATIONS EVEN AND UNLABORED WITH NO APPARENT S/SX OF ACUTE DISTRESS. WHITE COMMUNICATION BOARD UPDATED. ALL SAFETY MEASURES IN PLACE. CALL LIGHT WITHIN REACH. WILL CONTINUE TO MONITOR.
--- NOTE | 2021-09-19 05:05 | NUR ---
PT C/O 12/22 GEN PAIN. WILL MEDICATE PER PRN ORDER. RESPIRATIONS EVEN AND UNLABORED WITH NO APPARENT S/SX OF ACUTE DISTRESS. WHITE COMMUNICATION BOARD UPDATED. ALL SAFETY MEASURES IN PLACE. CALL LIGHT WITHIN REACH. WILL CONTINUE TO MONITOR.
[2021-09-19] MEDS: traMADol 50 MG TAB PO PRN (05:18)
--- NOTE | 2021-09-19 05:20 | NUR ---
PT IS REQUESTING MORE LEMON PACKETS FOR BREAKFAST. CONTACTED DIETARY AT [phone] AND LEFT A VOICEMAIL. WILL FOLLOW UP WITH DIETARY BEFORE END OF SHIFT.
[2021-09-19 05:24] LABS: BASOPHILS % (AUTO) 0.5 % (0.0-2.0); HEMATOCRIT 23.9 % (36-48); HEMOGLOBIN 8.6 g/dL (12.0-16.0); LYMPHOCYTES # (AUTO) 0.6 K/uL (2.5-16.5); LYMPHOCYTES % (AUTO) 15.2 % (20.5-51.1); MEAN CORPUSCULAR HEMOGLOBIN 43 pg (27-31); MEAN CORPUSCULAR HGB CONC 36 g/dL (33-37); MONOCYTES # (AUTO) 0.9 K/uL (0.8-1.0); MONOCYTES % (AUTO) 22.8 % (1.7-9.3); NEUTROPHILS # (AUTO) 2.5 K/uL (1.8-7.7); NEUTROPHILS % (AUTO) 61.5 % (42.2-75.2); PLATELET COUNT (AUTO) 46 K/uL (140-450); RED BLOOD CELL COUNT(AUTO) 2.03 MIL/uL (4.20-5.40); RED CELL DISTRIBUTION WIDTH 17.2 % (11.6-13.7); WHITE BLOOD COUNT (AUTO) 4.1 K/uL (4.8-10.8)
[2021-09-19] MEDS: guaiFENesin 20 MG/ML UDC PO PRN (05:30)
[2021-09-19 05:45] LABS: CARBON DIOXIDE 24.8 mmol/L (21-32); CREATININE 0.8 mg/dL (0.6-1.3); POTASSIUM 3.8 mmol/L (3.5-5.1)
--- NOTE | 2021-09-19 06:07 | NUR ---
MARIA R DHALIWAL FROM DIETARY. SHE WILL BE PROVIDING PT WITH REQUESTED EXTRA LEMON PACKETS OR SLICES FOR BREAKFAST.
--- NOTE | 2021-09-19 07:00 | NUR ---
ENDORSED PATIENT TO GIOVANNA ROONEY FOR CONTINUITY OF CARE. PATIENT IS STABLE.
--- NOTE | 2021-09-19 07:12 | NUR ---
RECEIVED REPORT FROM PM SHIFT TYRON MONTILLA FOR CONTINUITY OF CARE. PT. ALERT, ORIENTED STABLE ON ROOM AIR . NO DISTRESS NOTED. BREATHINGS UNLABORED. ALL SAFETY MEASURES IN PLACE. WILL CONTINUE TO MONITOOR THE PT.
[2021-09-19 08:00] VITALS: BP 106/61
[2021-09-19] MEDS: FUROSEMIDE 40 MG/4 ML VIAL IVP SCH (09:06)
[2021-09-19] MEDS: POTASSIUM CHLORIDE 10 MEQ TABER PO SCH (09:06)
[2021-09-19] MEDS: PANTOPRAZOLE 40 MG TABEC PO SCH (09:06)
[2021-09-19] MEDS: SPIRONOLACTONE 50 MG TAB PO SCH (09:07)
[2021-09-19] MEDS: MAGNESIUM OXIDE 400 MG TAB PO SCH (09:08)
[2021-09-19] MEDS: LACTULOSE 20 GM/30 ML UDC PO SCH (09:08)
--- NOTE | 2021-09-19 09:44 | NUR ---
PT. SITTING IN THE BED. ALERT,STABLE. NO DISTRESS NOTED. ADMINISTRED SCHEDULED MEDICATIONS. PT. TOLERATED WELL. WILL CONTINUE TO MONITOR THE PT.
[2021-09-19 11:35] VITALS: BP 106/61
--- NOTE | 2021-09-19 12:38 | NUR ---
PT. WITH DISCHARGE ORDER TO HOME. PT. SAID SHE WILL GO HOME BY [employer] TODAY. @1400. PREPARED DISCHARGE PACKET. BUT NOW SHE CALL HER FREIND AND SISTER TO [employer]ER HER. SO PER PT. HER FRIEND IS COMING TO PICK HER UP. WILL FOLLOW UP . MADE AWARE CHARGE NURSE SARAH AND DIRECTOR CHRISTIAN.
--- NOTE | 2021-09-19 14:10 | NUR ---
DISCHARGED PT. ORDER. DC MIDLINE UPON DISCHARGED. LITTLE BLEEDING NOTED . PRESSURE HELD FOR 15 MINS. AND BLEEDING STOPPED. APPLIED DRY GAUZE DRESSING AND TIGHT BANDAGE APPLIED. OBSERVED FOR 7 TO 8 MINS. NO BLEEDING NOTED. PT'S FRIEND CAME TO [employer] CONSULTANT HER. PT. STABLE. NOT IN DISTRESS. VS WNL UPON DISCHARGE. DROPPED PT. TO THE CAR VIA WHEEL CHAIR.
== END 2021-09-19 14:10 | disposition home or self-care (01) | DRG 444 ==
LOC: MED 12:50 → MTU 17:28
PROVIDERS: ADMIT Student in an Organized Health Care Education/Training Program; ATTEND Student in an Organized Health Care Education/Training Program
DX: K80.10 Calculus of gallbladder with chronic cholecystitis without obstruction (principal); E43 Unspecified severe protein-calorie malnutrition; D68.9 Coagulation defect, unspecified; J90 Pleural effusion, not elsewhere classified; E87.2 Acidosis; Z94.4 Liver transplant status; E87.6 Hypokalemia; Z20.822 Contact with and (suspected) exposure to COVID-19; E83.42 Hypomagnesemia; E86.0 Dehydration; F12.90 Cannabis use, unspecified, uncomplicated; K70.30 Alcoholic cirrhosis of liver without ascites; E80.6 Other disorders of bilirubin metabolism; E88.09 Other disorders of plasma-protein metabolism, not elsewhere classified; K70.10 Alcoholic hepatitis without ascites; D69.6 Thrombocytopenia, unspecified; K72.90 Hepatic failure, unspecified without coma; Z91.19 Patient's noncompliance with other medical treatment and regimen; Z79.84 Long term (current) use of oral hypoglycemic drugs; Z79.899 Other long term (current) drug therapy; Z68.22 Body mass index [BMI] 22.0-22.9, adult
CPT/HCPCS: 36415; 71045; 76705; 80048; 80053; 81001; 82140; 82150; 82607; 82728; 82746; 82948; 82977; 83540; 83605; 83615; 83690; 83735; 84100; 85025; 85045; 85610; 85730; 87040; 87081; 87086; 96374; 96375; 97110; 97112; 97116; 97163-GP; 97530; 99291; J1940; J1956; J2270; J2405; J2765; J3430; J3475; J3480; P9046; Q0092; U0003